=== PATIENT | male | born 1990 | race Caucasian/White ===

== ENCOUNTER 2017-03-14 00:53 | Emergency (ER) | payer SELFPAY ==
[~2017-03-14] VITALS: Ht 175.3 cm; Wt 92.5 kg
[2017-03-14 01:01] VITALS: Ht 175.3 cm; Wt 92.5 kg
[2017-03-14 02:37] LABS: microscopic required? NO
[2017-03-14 02:47] LABS: UA SPECIFIC GRAVITY 1.025 (1.005-1.035); urine erythrocyte NEGATIVE (NEGATIVE)
[2017-03-14 03:10] LABS: BASOPHIL % 0.4 % (0-2); PLATELET COUNT 252 x10^3mcL (130-400); RED CELL DISTRIBUTION WIDTH 13.4 % (11.5-14.5)
[2017-03-14 03:55] LABS: CARBON DIOXIDE 27.4 mmol/L (21-32); CHLORIDE SERUM 105 mmol/L (98-107); CREATININE SERUM 0.9 mg/dL (0.7-1.3); GFR1 > 60 mL/min; GLUCOSE SERUM 105 mg/dL (74-106); SODIUM SERUM 140 mmol/L (136-145)
[2017-03-14 04:00] LABS: ALBUMIN 3.9 g/dL (3.4-5.0); ALKALINE PHOSPHATASE 77 U/L (46-116); ALT/SGPT 47 U/L (16-63); AST/SGOT 23 U/L (15-37); BILIRUBIN TOTAL 0.35 mg/dL (0.20-1.00); TOTAL PROTEIN, SERUM 7.2 g/dL (6.4-8.2)
[2017-03-14 06:26] VITALS: BP 124/76
== END 2017-03-14 06:26 | disposition home or self-care (01) ==
LOC: ED 00:53
PROVIDERS: Emergency Medicine
DX: S22.31XA Fracture of one rib, right side, initial encounter for closed fracture (principal); R10.9 Unspecified abdominal pain; Z91.018 Allergy to other foods; W50.0XXA Accidental hit or strike by another person, initial encounter; Y93.66 Activity, soccer; Y99.8 Other external cause status; Y92.89 Other specified places as the place of occurrence of the external cause
CPT/HCPCS: J1885; J2270; J2405